=== PATIENT | female | born 1945 | race Caucasian/White ===

== ENCOUNTER 2018-10-17 08:49 | Day surgery (SDC) | payer MEDICARE, OTHER ==
[~2018-10-17] VITALS: Ht 165.1 cm; Wt 92.1 kg
[2018-10-17] VITALS (9 sets, daily range): BP systolic 123–152; BP diastolic 51–72
[2018-10-17] MEDS ORDERED: acetaminophen 325mg tablet PO ONE (09:05)
[2018-10-17] MEDS ORDERED: dexamethasone sod phosphate 4mg/ml inj. IV ONE (09:10)
[2018-10-17] MEDS ORDERED: diphenhydrAMINE 25mg capsule PO ONE (09:10)
--- NOTE | 2018-10-17 14:12 | NUR ---
TRANSFUSIONS COMPLETED. NO DISTRESS NOTED. NO ADVERSE REACTION TO TRANSFUSIONS. ALL BELONGINGS WITH PATIENT UPON DISCHARGE HOME. IV DISCONTINUED WITH CATH INTACT. PATIENT AMBULATED TO WAITING AUTO. TOLERATED PROCEDURE WELL. DISCHARGE INFORMATION GIVEN TO PATIENT REGARDING AFTER CARE BLOOD TRANSFUSION
== END 2018-10-17 14:12 | disposition home or self-care (01) ==
LOC: SSTAY O 08:49
PROVIDERS: ATTEND Internal Medicine Hematology & Oncology
DX: D64.9 Anemia, unspecified (principal); D59.1 Other autoimmune hemolytic anemias
CPT/HCPCS: 36415; 36430; 86885; 86900; 86901; 86920; 86945; J1100; P9016; Q0163

== ENCOUNTER 2019-01-24 08:42 | Day surgery (SDC) | payer MEDICARE, OTHER ==
[~2019-01-24] VITALS: Ht 162.6 cm; Wt 88.7 kg
[2019-01-24] VITALS (10 sets, daily range): BP systolic 121–153; BP diastolic 58–77
[2019-01-24] MEDS ORDERED: acetaminophen 325mg tablet PO ONE (09:05)
[2019-01-24] MEDS ORDERED: diphenhydrAMINE 25mg capsule PO ONE (09:05)
[2019-01-24] MEDS ORDERED: dexamethasone sod phosphate 4mg/ml inj. IV ONE (09:05)
== END 2019-01-24 14:20 | disposition home or self-care (01) ==
LOC: SSTAY O 08:42
PROVIDERS: ATTEND Internal Medicine Hematology & Oncology
DX: D59.1 Other autoimmune hemolytic anemias (principal)
CPT/HCPCS: 36415; 36430; 86885; 86900; 86901; 86920; 86945; J1100; P9016; Q0163

== ENCOUNTER 2019-06-20 06:32 | Day surgery (SDC) | payer MEDICARE, OTHER ==
[2019-06-20] VITALS (9 sets, daily range): BP systolic 118–149; BP diastolic 49–74
[~2019-06-20] VITALS: Ht 162.6 cm; Wt 89.3 kg
[2019-06-20] MEDS ORDERED: diphenhydrAMINE 25mg capsule PO ONE (06:50)
[2019-06-20] MEDS ORDERED: dexamethasone sod phosphate 10mg/ml inj IV ONE (06:50)
[2019-06-20] MEDS ORDERED: acetaminophen 325mg tablet PO ONE (06:50)
--- NOTE | 2019-06-20 10:06 | NUR ---
NO MEDICATIONS TAKEN AT HOME, MED REC NOT DONE
--- NOTE | 2019-06-20 12:17 | NUR ---
Patient discharged after 2 units of prbc per md orders, no reactions. Patient left in stable condition, vitals stable. Walked out, and drove self home. Patient understands follow up with primary MD. IV was dc'ed, canula tip intact.
== END 2019-06-20 12:17 | disposition home or self-care (01) ==
LOC: SSTAY O 06:32
PROVIDERS: ATTEND Internal Medicine Hematology & Oncology
DX: D59.1 Other autoimmune hemolytic anemias (principal); C91.50 Adult T-cell lymphoma/leukemia (HTLV-1-associated) not having achieved remission; D64.9 Anemia, unspecified
CPT/HCPCS: 36415; 36430; 86885; 86900; 86901; 86920; 86945; J1100; P9016; Q0163